=== PATIENT | male | born 1965 | race Caucasian/White ===

== ENCOUNTER 2018-09-21 11:03 | Emergency (ER) | payer BC, OTHER ==
[~2018-09-21] VITALS: Ht 177.8 cm; Wt 88.5 kg
--- OUTSIDE RECORDS SUMMARY | 2018-09-21 11:09 | XMS REPORT | Continuity of Care Document ---
Author Organization Unknown Address Unknown Allergies There is no data. Medications There is no data. Problems There is no data. Procedures There is no data. Results Test Result Range LIPID PANEL - 08/20/18 15:45 CHOLESTEROL, TOTAL 156 mg/dL <200 HDL CHOLESTEROL 40 mg/dL >40 TRIGLYCERIDES 200 mg/dL <150 LDL-CHOLESTEROL 86 mg/dL (calc) NRG CHOL/HDLC RATIO 3.9 (calc) <5.0 NON HDL CHOLESTEROL 116 mg/dL (calc) <130 GLUCOSE, SERUM - 08/20/18 15:45 GLUCOSE 97 mg/dL 65-99 Encounters ACCT No. Visit Date/Time Discharge Status Pt. Type Provider Facility Loc./Unit Complaint [id number] 09/17/2018 08:30:00 09/17/2018 23:59:59 [facility] Outpatient ABE EVANS [facility] [id number] 08/20/2018 17:45:00 Document Registration
--- NOTE | 2018-09-21 11:17 | NUR ---
pt here with " " staying in w/r. pt alert gcs 15. pt been c/o and holding left flank x 4 days . pain rating 7-8. pt has h/o kidney stones on right in the past. motrin w/o relief. pt denies blood in ua and denies pain with ua but states going ua more then usual. denies abd pain and n/v/d. pt denies recent back injury/ trauma/ lifting pulling etc. denies dyspnea and no acute sighns of dyspnea noted. lungs cta bilaterally. abd w/o pain with palpation. abd w/o pulsating massess.pt given urinal for ua pt denies chest pain . done raegan pt at 1124.
--- NOTE | 2018-09-21 11:36 | NUR ---
ua to lab by me if needed.
[2018-09-21 11:44] LABS: BILIRUBIN,URINE NEGATIVE (NEGATIVE); CLARITY,URINE CLEAR; COLOR,URINE YELLOW; GLUCOSE, URINE (UA) NEGATIVE (NEGATIVE); KETONES,URINE NEGATIVE (NEGATIVE); LEUKOCYTE ESTERASE ,URINE 1+ (NEGATIVE); NITRITE,URINE NEGATIVE (NEGATIVE); PH,URINE 6 (5-9); PROTEIN,URINE NEGATIVE (NEGATIVE); UROBILINOGEN,URINE NORMAL (NORMAL)
[2018-09-21 11:57] LABS: BACTERIA,URINE TRACE /HPF
--- NOTE | 2018-09-21 11:58 | ED Back Pain ---
General Chief Complaint: Back Problems Stated Complaint: BACK PAIN Nursing Triage Note: left flank pain Nursing Sepsis Screen: No Definite Risk Source of Information: Patient Exam Limitations: No Limitations History of Present Illness Date Seen by Provider: Sep 21, 2018 Time Seen by Provider: 11:57 Initial Comments To ER per private vehicle with reports of left flank pain. Began 4 days ago and has been persistent since then, intermittently worse. He reports urinary frequency. Denies fevers or chills. History of kidney stone on the right about 5 years ago. Has been using a lot of ibuprofen for pain control l Timing/Duration: 3-4 Days Severity: Moderate Associated Symptoms: denies symptoms Allergies and Home Medications Allergies Coded Allergies: No Known Drug Allergies (Unverified , 09/21/18) Home Medications Cefuroxime Axetil 500 Mg Tablet, 500 MG PO BID Prescribed by: MANUEL ASTORGA on 09/21/18 1228 Hydrocodone/Acetaminophen 1 Each Tablet, 1 TAB PO Q6H PRN for PAIN-MODERATE Prescribed by: MANUEL ASTORGA on 09/21/18 1228 Tamsulosin HCl 0.4 Mg Cap, 0.4 MG PO DAILY Prescribed by: MANUEL ASTORGA on 09/21/18 1228 Patient Home Medication List Home Medication List Reviewed: Yes Review of Systems Constitutional: see HPI EENTM: see HPI Respiratory: no symptoms reported Cardiovascular: no symptoms reported Genitourinary: no symptoms reported Musculoskeletal: no symptoms reported Skin: see HPI Psychiatric/Neurological: No Symptoms Reported Past Evojyvd-Cigrkp-Ehcqdd Hx Patient Social History Alcohol Use: Denies Use Recreational Drug Use: No Smoking Status: Never a Smoker Recent Foreign Travel: No Contact w/Someone Who Travel: No Recent Infectious Disease Expo: No Physical Abuse: No Sexual Abuse: No Physical Exam Vital Signs Vital Signs - First Documented 09/21/18 11:17 Temp 97.7 Pulse 80 Resp 12 B/P (MAP) 147/75 (99) Pulse Ox 96 O2 Delivery Room Air Capillary Refill : Less Than 3 Seconds Height, Weight, BMI Height: 5'10.00" Weight: 195lbs. oz. 88.415177tk; BMI Method:Stated General Appearance: No Apparent Distress, WD/WN Cardiovascular: Regular Rate, Rhythm, Normal Peripheral Pulses Respiratory: No Accessory Muscle Use, No Respiratory Distress Gastrointestinal: Normal Bowel Sounds, Non Tender, Soft Back: CVA Tenderness (L) Extremity: Normal Capillary Refill, Normal Inspection Neurologic/Psychiatric: Alert, Oriented x3, No Motor/Sensory Deficits Skin: Normal Color, Warm/Dry, Other (inspection of the skin to the left flank at the area of pain reveals normal appearance with no rash) Progress/Results/Core Measures Results/Orders Lab Results Laboratory Tests Test 09/21/18 11:34 09/21/18 12:15 Range/Units Urine Color YELLOW Urine Clarity CLEAR Urine pH 6 5-9 Urine Specific [place] 1.025 H 1.016-1.022 Urine Protein NEGATIVE NEGATIVE Urine Glucose (UA) NEGATIVE NEGATIVE Urine Ketones NEGATIVE NEGATIVE Urine Nitrite NEGATIVE NEGATIVE Urine Bilirubin NEGATIVE NEGATIVE Urine Urobilinogen NORMAL NORMAL MG/DL Urine Leukocyte Esterase 1+ H NEGATIVE Urine RBC (Auto) NEGATIVE NEGATIVE Urine RBC NONE /HPF Urine WBC NONE /HPF Urine Crystals NONE /LPF Urine Bacteria TRACE /HPF Urine Casts NONE /LPF Urine Mucus NEGATIVE /LPF Urine Culture Indicated NO White Blood Count 16.1 H 4.3-11.0 10^3/uL Red Blood Count 4.68 4.35-5.85 10^6/uL Hemoglobin 13.3 13.3-17.7 G/DL Hematocrit 40 40-54 % Mean Corpuscular Volume 86 80-99 FL Mean Corpuscular Hemoglobin 28 25-34 PG Mean Corpuscular Hemoglobin Concent 33 32-36 G/DL Red Cell Distribution Width 13.4 10.0-14.5 % Platelet Count 257 130-400 10^3/uL Mean Platelet Volume 10.3 7.4-10.4 FL Neutrophils (%) (Auto) 84 H 42-75 % Lymphocytes (%) (Auto) 10 L 12-44 % Monocytes (%) (Auto) 6 0-12 % Eosinophils (%) (Auto) 0 0-10 % Basophils (%) (Auto) 0 0-10 % Neutrophils # (Auto) 13.6 H 1.8-7.8 X 10^3 Lymphocytes # (Auto) 1.6 1.0-4.0 X 10^3 Monocytes # (Auto) 0.9 0.0-1.0 X 10^3 Eosinophils # (Auto) 0.0 0.0-0.3 10^3/uL Basophils # (Auto) 0.0 0.0-0.1 10^3/uL Sodium Level 139 135-145 MMOL/L Potassium Level 3.9 3.6-5.0 MMOL/L Chloride Level 106 98-107 MMOL/L Carbon Dioxide Level 24 21-32 MMOL/L Anion Gap 9 5-14 MMOL/L Blood Urea Nitrogen 33 H 7-18 MG/DL Creatinine 1.87 H 0.60-1.30 MG/DL Estimat Glomerular Filtration Rate 38 BUN/Creatinine Ratio 18 Glucose Level 140 H 70-105 MG/DL Calcium Level 9.7 8.5-10.1 MG/DL Corrected Calcium 9.9 8.5-10.1 MG/DL Total Bilirubin 0.4 0.1-1.0 MG/DL Aspartate Amino Transf (AST/SGOT) 14 5-34 U/L Alanine Aminotransferase (ALT/SGPT) 23 0-55 U/L Alkaline Phosphatase 55 40-136 U/L Total Protein 6.8 6.4-8.2 GM/DL Albumin 3.8 3.2-4.5 GM/DL My Orders Orders - MANUEL ASTORGA APRN Cbc With Automated Diff (09/21/18 11:38) Comprehensive Metabolic Panel (09/21/18 11:38) Ua Culture If Indicated (09/21/18 11:38) Ed Iv/Invasive Line Start (09/21/18 11:38) Abdomen/Kub 1view (09/21/18 11:38) Ct Abd/Pelvis Wo(Kidney Stone) (09/21/18 11:38) Ketorolac Injection (Toradol Injection) (09/21/18 12:00) Ns Iv 1000 Ml (Sodium Chloride 0.9%) (09/21/18 12:00) Manual Differential (09/21/18 12:15) Ceftriaxone For Iv Use (Rocephin For I (09/21/18 12:30) Medications Given in ED Current Medications Medications Dose Ordered Sig/Tammy Route Start Time Stop Time Status Last Admin Dose Admin Ceftriaxone Sodium 1000 mg/ Sterile Water 10 ml @ 200 mls/hr ONCE ONCE IV 09/21/18 12:30 09/21/18 12:32 DC 09/21/18 12:37 200 MLS/HR Ketorolac Tromethamine 15 mg ONCE ONCE IVP 09/21/18 12:00 09/21/18 12:01 DC 09/21/18 12:16 15 MG Vital Signs/I&O 09/21/18 11:17 Temp 97.7 Pulse 80 Resp 12 B/P (MAP) 147/75 (99) Pulse Ox 96 O2 Delivery Room Air Blood Pressure Mean: 99 Diagnostic Imaging Diagonstic Imaging: CT Comments NAME: ROBERT ENRIQUE [facility] REC#: [id number] PT STATUS: REG ER : 1965 PHYSICIAN: MANUEL ASTORGA [facility] ADMIT DATE: 09/21/18/ER Draft Date of Exam:09/21/18 CT ABD/PELVIS WO(KIDNEY STONE) PROCEDURE: CT urinary tract, rule out kidney stone. TECHNIQUE: Multiple contiguous axial images were obtained through the abdomen and pelvis without the use of intravenous contrast. Auto Exposure Controls were utilized during the CT exam to meet ALARA standards for radiation dose reduction. INDICATION: Left flank pain kidney stones COMPARISON: None. FINDINGS: There is mild left-sided hydronephrosis and hydroureter. This is secondary to a destructive 5 mm stone in the mid left ureter. Additional nonobstructive stones are seen bilaterally. The urinary bladder is unremarkable. There is mild prostate enlargement. The lung bases are clear. The gallbladder is contracted likely from a postprandial state. Solid organs, vascular structures and bowel are grossly unremarkable. There are a few diverticuli of the sigmoid colon without diverticulitis. Osseous structures are age-appropriate. IMPRESSION: Mild left-sided hydronephrosis secondary to an obstructive stone in the mid left ureter. Dictated on workstation # [id number] Dict: 09/21/18 1210 Trans: 09/21/18 1217 [facility] [id number] Interpreted by: MARIANNA DOAN Electronically signed by: Departure Communication (Admissions) [id number] discussed with Dr. Woods. He agrees with Ceftin, Flomax, pain medication. I'll have the patient call his office Sunday morning for appointment. Impression Primary Impression: Left ureteral stone Disposition: HOME, SELF-CARE Condition: Stable Departure-Patient Inst. Decision time for Depature: 12:26 Referrals: NO,LOCAL PHYSICIAN (PCP) Primary Care Physician KEYUR WOODS MD Patient Instructions: Kidney Stones (DC) Add. Discharge Instructions: 1. Pain medication as directed 2. Return to ER for any fevers chills or other concerns. Take medication as directed. Follow-up with Dr. Woods. Call his office on Sunday to make an appointment to be seen. Your kidney function is not horrible but is not perfect either. As such she should avoid ibuprofen use, use the hydrocodone for pain. All discharge instructions reviewed with patient and/or family. Voiced understanding. Scripts Cefuroxime Axetil (Cefuroxime) 500 Mg Tablet 500 MG PO BID, #10 TAB Prov: MANUEL ASTORGA APRN 09/21/18 Tamsulosin HCl (Flomax) 0.4 Mg Cap 0.4 MG PO DAILY, #14 CAP Prov: MANUEL ASTORGA APRN 09/21/18 Hydrocodone/Acetaminophen ([place] 5-325 Tablet) 1 Each Tablet 1 TAB PO Q6H PRN for PAIN-MODERATE MDD 10 TABS for 7 Days, #20 TAB Prov: MANUEL ASTORGA APRN 09/21/18 Copy Copies To 1: KEYUR WOODS MD, PETER J APRN Sep 21, 2018 11:58
[2018-09-21] MEDS ORDERED: KETOROLAC 30 MG/ML VIAL IVP ONE (12:00)
[2018-09-21] MEDS ORDERED: NS IV 1000 ML 1,000 ML IV SCH (12:00)
--- NOTE | 2018-09-21 12:18 | Diagnostic Imaging Report ---
PROCEDURE: CT urinary tract, rule out kidney stone. TECHNIQUE: Multiple contiguous axial images were obtained through the abdomen and pelvis without the use of intravenous contrast. Auto Exposure Controls were utilized during the CT exam to meet ALARA standards for radiation dose reduction. INDICATION: Left flank pain kidney stones COMPARISON: None. FINDINGS: There is mild left-sided hydronephrosis and hydroureter. This is secondary to a destructive 5 mm stone in the mid left ureter. Additional nonobstructive stones are seen bilaterally. The urinary bladder is unremarkable. There is mild prostate enlargement. The lung bases are clear. The gallbladder is contracted likely from a postprandial state. Solid organs, vascular structures and bowel are grossly unremarkable. There are a few diverticuli of the sigmoid colon without diverticulitis. Osseous structures are age-appropriate. IMPRESSION: Mild left-sided hydronephrosis secondary to an obstructive stone in the mid left ureter. Dictated by: Dictated on workstation # [id number]
--- NOTE | 2018-09-21 12:21 | Diagnostic Imaging Report ---
INDICATION: Flank pain, hematuria COMPARISON: None. FINDINGS: 2 views of the abdomen demonstrate probable calcification in the left ureter at the level of the iliac crest. Bowel gas pattern is normal. There is no free air or obstruction. IMPRESSION: Left ureteral calculus. See dictated CT report. Dictated by: Dictated on workstation # [id number]
[2018-09-21 12:23] LABS: BASOPHILS % (AUTO) 0 % (0-10); EOSINOPHILS % (AUTO) 0 % (0-10); HEMATOCRIT 40 % (40-54); HEMOGLOBIN 13.3 G/DL (13.3-17.7); LYMPHOCYTES # (AUTO) 1.6 X 10^3 (1.0-4.0); LYMPHOCYTES % (AUTO) 10 % (12-44); MEAN CORPUSCULAR HEMOGLOBIN 28 PG (25-34); MEAN CORPUSCULAR HGB CONC 33 G/DL (32-36); MEAN CORPUSCULAR VOLUME 86 FL (80-99); MEAN PLATELET VOLUME 10.3 FL (7.4-10.4); MONOCYTES # (AUTO) 0.9 X 10^3 (0.0-1.0); MONOCYTES % (AUTO) 6 % (0-12); NEUTROPHILS # (AUTO) 13.6 X 10^3 (1.8-7.8); NEUTROPHILS % (AUTO) 84 % (42-75); PLATELET COUNT 257 10^3/uL (130-400); RED CELL DISTRIBUTION WIDTH 13.4 % (10.0-14.5); WHITE BLOOD COUNT 16.1 10^3/uL (4.3-11.0)
[2018-09-21] MEDS ORDERED: HYDR-4226 PO (12:28)
[2018-09-21] MEDS ORDERED: TAMS0.4C98 PO (12:28)
[2018-09-21] MEDS ORDERED: CEFU500T63 PO (12:28)
[2018-09-21] MEDS ORDERED: cefTRIAXone FOR IV USE 1,000 MG in WATER (STERILE) FOR INJECTION 10 ML IV ONE (12:30)
[2018-09-21 12:42] LABS: ALBUMIN 3.8 GM/DL (3.2-4.5); BILIRUBIN,TOTAL 0.4 MG/DL (0.1-1.0); CALCIUM 9.7 MG/DL (8.5-10.1); CREATININE SERUM 1.87 MG/DL (0.60-1.30); POTASSIUM 3.9 MMOL/L (3.6-5.0); TOTAL PROTEIN 6.8 GM/DL (6.4-8.2)
[2018-09-21 12:48] LABS: LYMPHOCYTES % (MANUAL) 7 %; MONOCYTES % (MANUAL) 5 %; NEUTROPHILS % (MANUAL) 88 %
[2018-09-21 12:49] LABS: RBC MORPH NORMAL
--- NOTE | 2018-09-21 12:56 | NUR ---
pt remains in room by self alert gcs 15. denies dyspnea and no acute sighns of dyspnea noted. pain rating 1. liter bolus completed. pt with no n/v/d noted in er visit thus far. bp machine is 129/81 ausc hr 68 reg ausc resp 12 normal recheck temp is 97.5 p ox r/a is 98.
[2018-09-21 13:13] VITALS: BP 129/81
--- NOTE | 2018-09-21 13:13 | NUR ---
d/c instructions to pt. told to read all papers. scripts paper and fax. pt left ambulatory by self. pt knows f/u. i went over the handtyped by information on the chart. iv d/cd by me prior to d/c.
== END 2018-09-21 13:13 | disposition home or self-care (01) ==
LOC: ER 11:05
DX: N13.2 Hydronephrosis with renal and ureteral calculous obstruction (principal); Z87.442 Personal history of urinary calculi
CPT/HCPCS: 36415; 74018; 74176; 80053; 81000; 85007; 85027; 96374; 96375

== ENCOUNTER 2018-09-23 10:39 | Emergency (ER) | payer BC ==
[~2018-09-23] VITALS: Ht 177.8 cm; Wt 88.5 kg
[~2018-09-23 10:39] MED LIST: CEFU500T63 PO; HYDR-4226 PO; TAMS0.4C98 PO
[2018-09-23] MEDS ORDERED: NS IV 1000 ML 1,000 ML IV ONE (10:55)
[2018-09-23] MEDS ORDERED: KETOROLAC 30 MG/ML VIAL IVP STA (10:55)
--- NOTE | 2018-09-23 11:05 | ED GU-Male ---
General Chief Complaint: Abdominal/GI Problems Stated Complaint: LOWER BACK PAIN Nursing Triage Note: PT WAS SEEN FOR A KIDNEY STONE AND PT STATES HE IS STILL IN PAIN AND STATES HE FEELS KIDNEY STONE IS STILL IN THE SAME PLACE. Source: patient Exam Limitations: no limitations (COLLIN TELLES MD) History of Present Illness Date Seen by Provider: Sep 23, 2018 Time Seen by Provider: 10:42 Initial Comments Here with report of left flank pain that is still going on for the last couple of days. Has kidney stone and feels like it's in the same place. He is concerned because it does not seem to be moving. Due to the increased pain, he presented here for further evaluation. Denies nausea or vomiting. Pain meds are controlling his pain somewhat although he does not necessarily like to take his narcotic. Timing/Duration: getting worse, other (3 to 4 days) Severity/Quality: moderate Location: left flank Radiation: none Activities at Onset: none Associated Symptoms: No abdominal pain, No fever/chills, No nausea/vomiting, No urinary frequency (COLLIN TELLES MD) Allergies and Home Medications Allergies Coded Allergies: No Known Drug Allergies (Unverified , 09/21/18) Home Medications Cefuroxime Axetil 500 Mg Tablet, 500 MG PO BID Prescribed by: MANUEL ASTORGA on 09/21/18 1228 Hydrocodone/Acetaminophen 1 Each Tablet, 1 TAB PO Q6H PRN for PAIN-MODERATE Prescribed by: MANUEL ASTORGA on 09/21/18 1228 Tamsulosin HCl 0.4 Mg Cap, 0.4 MG PO DAILY Prescribed by: MANUEL ASTORGA on 09/21/18 1228 Patient Home Medication List Home Medication List Reviewed: Yes (OCLLIN TELLES MD) Review of Systems Review of Systems Constitutional: see HPI; No chills, No fever EENTM: no symptoms reported Respiratory: no symptoms reported Cardiovascular: no symptoms reported Gastrointestinal: see HPI Genitourinary: flank pain; denies hematuria Musculoskeletal: no symptoms reported (COLLIN TELLES MD) All Other Systemes Reviewed Negative Unless Noted: Yes (COLLIN TELLES MD) Past Zksyzwc-Xwavzg-Utmbgj Hx Past Med/Social Hx: Reviewed Nursing Past Med/Soc Hx (COLLIN TELLES MD) Patient Social History Alcohol Use: Denies Use Recreational Drug Use: No Smoking Status: Never a Smoker Recent Foreign Travel: No Contact w/Someone Who Travel: No Recent Infectious Disease Expo: No Recent Hopitalizations: No Physical Abuse: No Sexual Abuse: No Mistreated: No Fear: No (COLLIN TELLES MD) Past Medical History Surgeries: No Respiratory: No Cardiac: No Neurological: No Genitourinary: Yes Kidney Stones Gastrointestinal: No Musculoskeletal: No Endocrine: No (COLLIN TELLES MD) Family Medical History Reviewed Nursing Family Hx (COLLIN TELLES MD) No Pertinent Family Hx (COLLIN TELLES MD) Physical Exam Vital Signs Vital Signs - First Documented 09/23/18 10:44 Temp 97.6 Pulse 65 Resp 18 B/P (MAP) 171/76 (107) O2 Delivery Room Air (MANUEL ASTORGA APRN) Vital Signs Capillary Refill : Less Than 3 Seconds (COLLIN TELLES MD) Height, Weight, BMI Height: 5'10.00" Weight: 195lbs. oz. 88.761963ca; BMI Method:Stated General Appearance: WD/WN, no apparent distress Cardiovascular: regular rate, rhythm, no murmur Respiratory: lungs clear, normal breath sounds Gastrointestinal: non tender, soft Back: no vertebral tenderness; No CVA tenderness (R); CVA tenderness (L) Extremities: non-tender, normal inspection Neurologic/Psychiatric: alert, oriented x 3 Skin: normal color, warm/dry (COLLIN TELLES MD) Progress/Results/Core Measures Suspected Sepsis Recent Fever Within 48 Hours: No Infection Criteria Present: None New/Unexplained Altered Menta: No Sepsis Screen: No Definite Risk SIRS Temperature:97.6 Pulse: 65 Respiratory Rate: 18 Laboratory Tests 09/23/18 11:00: White Blood Count 10.3 Blood Pressure 171 /76 Mean: 107 Laboratory Tests 09/23/18 11:00: Creatinine 1.45H, Platelet Count 258, Total Bilirubin 0.4 (COLLIN TELLES MD) Results/Orders Lab Results Laboratory Tests Test 09/23/18 11:00 09/23/18 12:15 Range/Units White Blood Count 10.3 4.3-11.0 10^3/uL Red Blood Count 4.76 4.35-5.85 10^6/uL Hemoglobin 13.4 13.3-17.7 G/DL Hematocrit 41 40-54 % Mean Corpuscular Volume 87 80-99 FL Mean Corpuscular Hemoglobin 28 25-34 PG Mean Corpuscular Hemoglobin Concent 33 32-36 G/DL Red Cell Distribution Width 13.9 10.0-14.5 % Platelet Count 258 130-400 10^3/uL Mean Platelet Volume 10.0 7.4-10.4 FL Neutrophils (%) (Auto) 59 42-75 % Lymphocytes (%) (Auto) 30 12-44 % Monocytes (%) (Auto) 9 0-12 % Eosinophils (%) (Auto) 2 0-10 % Basophils (%) (Auto) 0 0-10 % Neutrophils # (Auto) 6.1 1.8-7.8 X 10^3 Lymphocytes # (Auto) 3.1 1.0-4.0 X 10^3 Monocytes # (Auto) 0.9 0.0-1.0 X 10^3 Eosinophils # (Auto) 0.2 0.0-0.3 10^3/uL Basophils # (Auto) 0.0 0.0-0.1 10^3/uL Sodium Level 140 135-145 MMOL/L Potassium Level 3.8 3.6-5.0 MMOL/L Chloride Level 104 98-107 MMOL/L Carbon Dioxide Level 27 21-32 MMOL/L Anion Gap 9 5-14 MMOL/L Blood Urea Nitrogen 23 H 7-18 MG/DL Creatinine 1.45 H 0.60-1.30 MG/DL Estimat Glomerular Filtration Rate 51 BUN/Creatinine Ratio 16 Glucose Level 87 70-105 MG/DL Calcium Level 9.5 8.5-10.1 MG/DL Corrected Calcium 9.7 8.5-10.1 MG/DL Total Bilirubin 0.4 0.1-1.0 MG/DL Aspartate Amino Transf (AST/SGOT) 15 5-34 U/L Alanine Aminotransferase (ALT/SGPT) 24 0-55 U/L Alkaline Phosphatase 50 40-136 U/L Total Protein 6.5 6.4-8.2 GM/DL Albumin 3.8 3.2-4.5 GM/DL Urine Color YELLOW Urine Clarity CLEAR Urine pH 6.5 5-9 Urine Specific [place] 1.010 L 1.016-1.022 Urine Protein NEGATIVE NEGATIVE Urine Glucose (UA) NEGATIVE NEGATIVE Urine Ketones NEGATIVE NEGATIVE Urine Nitrite NEGATIVE NEGATIVE Urine Bilirubin NEGATIVE NEGATIVE Urine Urobilinogen NORMAL NORMAL MG/DL Urine Leukocyte Esterase 1+ H NEGATIVE Urine RBC (Auto) NEGATIVE NEGATIVE Urine RBC NONE /HPF Urine WBC 2-5 /HPF Urine Squamous Epithelial Cells RARE /HPF Urine Crystals NONE /LPF Urine Bacteria NEGATIVE /HPF Urine Casts NONE /LPF Urine Mucus NEGATIVE /LPF Urine Culture Indicated NO (MANUEL ASTORGA APRN) Medications Given in ED Current Medications Medications Dose Ordered Sig/Tammy Route Start Time Stop Time Status Last Admin Dose Admin Sodium Chloride 1,000 ml @ 0 mls/hr Q0M ONCE IV 09/23/18 10:55 09/23/18 10:58 DC 09/23/18 11:04 0 MLS/HR (MANUEL ASTORGA APRN) Vital Signs/I&O 09/23/18 10:44 Temp 97.6 Pulse 65 Resp 18 B/P (MAP) 171/76 (107) O2 Delivery Room Air (MANUEL ASTORGA APRN) Vital Signs/I&O Capillary Refill : Less Than 3 Seconds (COLLIN TELLES MD) Blood Pressure Mean: 107 Progress Note : Progress Note Seen and evaluated. IV, labs, UA and KUB ordered. Normal saline 1 L bolus. Toradol 30 mg IV. Monitor patient. (COLLIN TELLES MD) Diagnostic Imaging Diagonstic Imaging: Xray Plain Films/CT/US/NM/MRI: abdomen Comments [facility] [place] NAME: ROBERT ENRIQUE [facility] REC#: [id number] PT STATUS: REG ER : 1965 PHYSICIAN: COLLIN TELLES MD ADMIT DATE: 09/23/18/ER Draft Date of Exam:09/23/18 ABDOMEN/KUB 1VIEW INDICATION: Back pain. FINDINGS: There is a mildly elevated colonic fecal load. There are pelvic vascular and prostatic calcifications which could obscure distal ureteral stones. Small stones in the left lower pole calyces are present. On CT of 09/21/2018, there was a left ureteral stone at the level of the L5-S1 junction, which has probably migrated caudally to the distal left ureter where a 5.1 mm stone left of midline is present. IMPRESSION: Left pelvic calcification, 5.1 mm, believed to be previously seen left ureteral calculus at the L5-S1 level. Additional phleboliths and prostatic calcifications noted. Punctate stones in the lower pole of the left kidney noted. Dictated on workstation # [id number] Dict: 09/23/18 1138 Trans: 09/23/18 1142 [id number] Interpreted by: STAR PUCKETT Electronically signed by: (COLLIN TELLES MD) Departure Communication (Admissions) 1250-Dr Woods has been here to see patient. will schedule for ureteroscopy this sunday morning. For recurrent pain go to [facility] or here for injection of toradol. Will give rx for additional for norco. continue all current meds. (MANUEL ASTORGA APRN) Impression Primary Impression: Left ureteral stone Disposition: HOME, SELF-CARE Condition: Stable Departure-Patient Inst. Decision time for Depature: 12:38 (MANUEL ASTORGA APRN) Referrals: NO,LOCAL PHYSICIAN (PCP) Primary Care Physician KEYUR WOODS MD Patient Instructions: Kidney Stones in Adults Add. Discharge Instructions: 3 continue current medications 2. Follow-up with Dr. Woods as scheduled. 2. All discharge instructions reviewed with patient and/or family. Voiced understanding. COLLIN TELLES MD Sep 23, 2018 11:04 MANUEL ASTORGA APRN Sep 23, 2018 12:39
[2018-09-23 11:09] LABS: BASOPHILS % (AUTO) 0 % (0-10); EOSINOPHILS # (AUTO) 0.2 10^3/uL (0.0-0.3); EOSINOPHILS % (AUTO) 2 % (0-10); HEMATOCRIT 41 % (40-54); HEMOGLOBIN 13.4 G/DL (13.3-17.7); LYMPHOCYTES # (AUTO) 3.1 X 10^3 (1.0-4.0); LYMPHOCYTES % (AUTO) 30 % (12-44); MEAN CORPUSCULAR HEMOGLOBIN 28 PG (25-34); MEAN CORPUSCULAR HGB CONC 33 G/DL (32-36); MEAN CORPUSCULAR VOLUME 87 FL (80-99); MONOCYTES # (AUTO) 0.9 X 10^3 (0.0-1.0); MONOCYTES % (AUTO) 9 % (0-12); NEUTROPHILS # (AUTO) 6.1 X 10^3 (1.8-7.8); NEUTROPHILS % (AUTO) 59 % (42-75); PLATELET COUNT 258 10^3/uL (130-400); RED CELL DISTRIBUTION WIDTH 13.9 % (10.0-14.5); WHITE BLOOD COUNT 10.3 10^3/uL (4.3-11.0)
[2018-09-23 11:25] LABS: ALBUMIN 3.8 GM/DL (3.2-4.5); BILIRUBIN,TOTAL 0.4 MG/DL (0.1-1.0); CALCIUM 9.5 MG/DL (8.5-10.1); CREATININE SERUM 1.45 MG/DL (0.60-1.30); POTASSIUM 3.8 MMOL/L (3.6-5.0); TOTAL PROTEIN 6.5 GM/DL (6.4-8.2)
--- NOTE | 2018-09-23 11:43 | Diagnostic Imaging Report ---
INDICATION: Back pain. FINDINGS: There is a mildly elevated colonic fecal load. There are pelvic vascular and prostatic calcifications which could obscure distal ureteral stones. Small stones in the left lower pole calyces are present. On CT of 09/21/2018, there was a left ureteral stone at the level of the L5-S1 junction, which has probably migrated caudally to the distal left ureter where a 5.1 mm stone left of midline is present. IMPRESSION: Left pelvic calcification, 5.1 mm, believed to be previously seen left ureteral calculus at the L5-S1 level. Additional phleboliths and prostatic calcifications noted. Punctate stones in the lower pole of the left kidney noted. Dictated by: Dictated on workstation # [id number]
[2018-09-23 12:22] LABS: BILIRUBIN,URINE NEGATIVE (NEGATIVE); CLARITY,URINE CLEAR; COLOR,URINE YELLOW; GLUCOSE, URINE (UA) NEGATIVE (NEGATIVE); KETONES,URINE NEGATIVE (NEGATIVE); LEUKOCYTE ESTERASE ,URINE 1+ (NEGATIVE); NITRITE,URINE NEGATIVE (NEGATIVE); PH,URINE 6.5 (5-9); PROTEIN,URINE NEGATIVE (NEGATIVE); UROBILINOGEN,URINE NORMAL (NORMAL)
[2018-09-23 12:45] LABS: BACTERIA,URINE NEGATIVE /HPF; SQUAMOUS EPITHELIAL CELL,UR RARE /HPF
[2018-09-23 12:54] VITALS: BP 171/76
--- OUTSIDE RECORDS SUMMARY | 2018-09-23 22:21 | XMS REPORT | Continuity of Care Document ---
[...] Status Pt. Type Provider Facility Loc./Unit Complaint [id number] 09/17/2018 08:30:00 09/17/2018 23:59:59 [facility] Outpatient ABE EVANS [facility] [id number] 08/20/2018 17:45:00 Document Registration
== END 2018-09-23 13:02 | disposition home or self-care (01) ==
LOC: EDUNIT# 10:39 → ER 10:40
DX: N20.1 Calculus of ureter (principal)
CPT/HCPCS: 36415; 74018; 80053; 81000; 85025; 96361; 96374

== ENCOUNTER 2018-09-26 08:30 | Outpatient (CLI) | payer BC ==
[~2018-09-26] VITALS: Ht 177.8 cm; Wt 88.5 kg
[2018-09-27] MEDS ORDERED: SULF1TAB35 PO (10:29)
[2018-09-27] MEDS ORDERED: CLOT15CR4 TP (10:29)
[2018-09-27] MEDS ORDERED: PHEN-640 PO (10:29)
[2018-09-27] MEDS ORDERED: TAMS0.4C98 PO (10:29)
== END 2018-09-26 08:59 | disposition home or self-care (01) ==
LOC: PREOP 08:30
PROVIDERS: ATTEND Urology
DX: Z01.818 Encounter for other preprocedural examination (principal)

== ENCOUNTER 2018-09-27 07:14 | Day surgery (SDC) | payer BC ==
[~2018-09-27] VITALS: Ht 177.8 cm; Wt 88.5 kg
[2018-09-27] VITALS (10 sets, daily range): BP systolic 94–122; BP diastolic 60–87
[2018-09-27] MEDS: LACTATED RINGERS 1,000 ML IV PRN ×2 (07:59→09:31)
[2018-09-27] MEDS ORDERED: cefTRIAXone FOR IV USE 1,000 MG in WATER (STERILE) FOR INJECTION 10 ML IV ONE (08:00)
--- NOTE | 2018-09-27 08:05 | Diagnostic Imaging Report ---
Examination: Abdomen one view. History: Left ureteral stone. Findings: Comparison is 09/23/2018. There are 2 tiny calcifications projecting over the lower pole of the left kidney measuring approximately 2 mm. Calcification projects over the left L4 transverse process and may represent a ureteral stone seen on prior CT. Calcifications in the prostate and phleboliths are seen in the pelvis. Bowel gas pattern is normal. Impression: 1. Left lower pole renal stones and possible left ureteral stone similar to prior CT. Dictated by: Dictated on workstation # [id number]
[2018-09-27] MEDS ORDERED: DEXAMETHASONE 10 MG/ML (DECADRON) 1 ML VIAL ONE (08:11)
[2018-09-27] MEDS ORDERED: LIDOCAINE PF 2% 5 ML (XYLOCAINE) VIAL ONE (08:11)
[2018-09-27] MEDS ORDERED: ONDANSETRON 4 MG/2 ML (SDV) Z0FRAN ONE (08:11)
[2018-09-27] MEDS ORDERED: proPOfol 200 MG/20 ML (DIPRIVAN) VIAL IV ONE (08:11)
[2018-09-27] MEDS ORDERED: MIDAZOLAM 2 MG/2 ML (VERSED) VIAL ONE (08:12)
[2018-09-27] MEDS ORDERED: fentaNYL INJECTION 100 MCG/2 ML AMP ONE (08:12)
--- NOTE | 2018-09-27 08:27 | Progress Note-Pre Operative ---
Pre-Operative Progress Note H&P Reviewed The H&P was reviewed, patient examined and no changes noted. Date Seen by Provider: Sep 27, 2018 Time Seen by Provider: 08: Date H&P Reviewed: Sep 27, 2018 Time H&P Reviewed: : Pre-Operative Diagnosis: LT DISTAL URETERAL STONE KEYUR WOODS MD Sep 27, 2018 08:27
--- NOTE | 2018-09-27 08:30 | Progress Note-Post Operative ---
Post-Operative Progess Note Surgeon (s)/Certified Recreational Therapist (s) Surgeon KEYUR WOODS MD Certified Recreational Therapist: NONE Pre-Operative Diagnosis LT DISTAL URETERAL STONE Post-Operative Diagnosis SAME Procedure & Operative Findings Date of Procedure 09/27/18 Procedure Performed/Findings LT URETEROSCOPY WITH STONE LITHOTRIPSY Anesthesia Type GENERAL Estimated Blood Loss Estimated blood loss (mL): NONE Specimens/Packing Specimens Removed NONE Packing: NONE KEYUR WOODS MD Sep 27, 2018 08:30
[2018-09-27] MEDS ORDERED: SEVOFLURANE (ULTANE) 15 ML INHAL SOLN ONE (08:36)
[2018-09-27] MEDS ORDERED: KETOROLAC 30 MG/ML VIAL ONE (09:02)
[2018-09-27] MEDS ORDERED: FUROSEMIDE 40 MG/4 ML INJ (LASIX) ONE (09:02)
--- NOTE | 2018-09-27 09:20 | Discharge Inst-Urology ---
Discharge Inst-Urology Reconcile Patient Problems Problems Reviewed?: Yes Discharge Medications New, Converted, or Re-newed RX: RX on Chart Patient Instructions/Follow Up Plan Please make appointment to been seen in office in 4-5 weeks. Patient to strain all urines and save fragments to bring in office appointment Increase oral fluids. Diet and Activity as tolerated. If questions or concerns contact your physician Or seek help at emergency department. KEYUR WOODS MD Sep 27, 2018 09:20
[2018-09-27] MEDS ORDERED: morphine INJ 10 MG/ML 1ML (SYR OR VIAL) ONE (09:27)
[2018-09-27] MEDS ORDERED: ONDANSETRON 4 MG/2 ML (SDV) Z0FRAN IVP PRN (09:30)
[2018-09-27] MEDS ORDERED: PROMETHAZINE INJ 25 MG/ML (PHENERGAN) AMP IVP ONE (09:30)
[2018-09-27] MEDS ORDERED: MEPERIDINE (DEMEROL) INJ 50 MG/ML IVP ONE (09:30)
[2018-09-27] MEDS ORDERED: morphine INJ 10 MG/ML 1ML (SYR OR VIAL) IVP ONE (09:30)
--- OUTSIDE RECORDS SUMMARY | 2018-09-27 10:22 | XMS REPORT | Continuity of Care Document ---
[...] Status Pt. Type Provider Facility Loc./Unit Complaint [id number] 09/17/2018 08:30:00 09/17/2018 23:59:59 [facility] Outpatient [facility] [id number] 08/20/2018 17:45:00 Document Registration
[2018-09-27] MEDS ORDERED: SULF1TAB35 PO (10:29)
[2018-09-27] MEDS ORDERED: PHEN-640 PO (10:29)
[2018-09-27] MEDS ORDERED: CLOT15CR4 TP (10:29)
[2018-09-27] MEDS ORDERED: TAMS0.4C98 PO (10:29)
--- NOTE | 2018-09-27 10:47 | Anesthesia-General Post-Op ---
General Patient Condition Mental Status/LOC: Same as Preop Cardiovascular: Satisfactory Nausea/Vomiting: Absent Respiratory: Satisfactory Pain: Controlled Complications: Absent Post Op Complications Complications None Follow Up Care/Instructions Patient Instructions None needed. Anesthesia/Patient Condition Patient Condition Patient is doing well, no complaints, stable vital signs, no apparent adverse anesthesia problems. No complications reported per nursing. RADHA STRICKLAND CRNA Sep 27, 2018 10:47
--- NOTE | 2018-09-27 15:17 | OPERATIVE REPORT ---
DATE OF SERVICE: 09/27/2018 PREOPERATIVE DIAGNOSIS: Left distal ureteral stone. POSTOPERATIVE DIAGNOSIS: Left distal ureteral stone. OPERATION PERFORMED: Left ureteroscopy with stone lithotripsy. SURGEON: Vic Woods MD. ANESTHESIA: General. COMPLICATIONS: None. DESCRIPTION OF PROCEDURE: Under satisfactory general anesthesia, the patient in lithotomy position, genitalia were prepped and draped in the usual sterile fashion. Cystoscope was introduced under vision. The anterior urethra was normal. The prostate was nonobstructing. The bladder neck was opened with some medium bar. The bladder was inspected, revealed mild trabeculations. Ureteric orifices were normal in shape, size and configuration. There was a very sluggish efflux on the left side. Using the foroblique lens, I dilated the left ureteral orifice intramural portion to the level of the stone to accommodate a 6.9-Yi semi-rigid ureteroscope. I visualized the stone, broke it up into several small fragments using the lithoclast and changing the stone more proximally to get rid of all the fragments. There was no good size fragment and lot of the fragments already flew down into the bladder. I bypassed the area, I went more proximally to the mid ureter. There were no further stone fragments. The bladder was evacuated and cystoscope was removed after removing the ureteroscope. The patient tolerated the procedure and anesthesia well and was sent to recovery room in stable condition. Job ID: [id number] DocumentID: [id number] Dictated Date: 09/27/2018 09:22:41 Agricultural Engineering Technician Date: 09/27/2018 15:16:44 Dictated By: VIC WOODS MD [facility]
== END 2018-09-27 10:59 | disposition home or self-care (01) ==
LOC: SDC 07:14
PROVIDERS: ATTEND Urology
DX: N20.1 Calculus of ureter (principal); Z11.2 Encounter for screening for other bacterial diseases; K21.9 Gastro-esophageal reflux disease without esophagitis; Z87.891 Personal history of nicotine dependence; Z77.22 Contact with and (suspected) exposure to environmental tobacco smoke (acute) (chronic); Z79.899 Other long term (current) drug therapy
CPT/HCPCS: 74018; 87081